=== PATIENT | female | born 1975 | race Caucasian/White ===

== ENCOUNTER 2017-11-29 12:16 | Emergency (ER) | payer OTHER ==
[2017-11-29] MEDS: FAMOTIDINE 20 MG TAB PO (12:51)
[2017-11-29] MEDS: METHYLPREDNISOLONE 125 MG INJ IM (12:51)
[2017-11-29] MEDS: DIPHENHYDRAMINE 50 MG CAP PO (12:51)
== END 2017-11-29 13:15 | disposition home or self-care (01) ==
LOC: FTE 12:16
DX: R21 Rash and other nonspecific skin eruption (principal)
CPT/HCPCS: 96372; 99284-25